=== PATIENT | male | born 1960 | race Caucasian/White ===

== ENCOUNTER → 2017-02-19 | Outpatient (CLI) | payer MEDICARE, BC ==
[~2017-02-19] MED LIST: ADVAIR 100/28 DISKU1 IH; ADVAIR IH; ALAVERT10 M1 PO; ALAVERT10 MG PO; ATARAX10 MG PO; ATIVAN 0.50.5 MG/TAB PO; ATIVAN0.5 MG PO; BENADRYL25 M1 PO; CARDIZEM CD180 MG PO; CELEXA10 MG PO; DEMEROL 50M50 MG/TAB PO; DILAUDID 2MG/2 MG/M1; DILAUDID-51 MG/M1 SQ; DILTIAZEM180 M1 PO; ELAVIL10 MG PO; FISH OIL1000 MG PO; FLECAINIDE ACET50 MG PO; FLECAINIDE PO; FLEXERIL10 MG PO; FLONASE NASAL S16 GM NS; HCTZ PO; IBU-TAB800 MG PO; LEVAQUIN; LORTAB 10/500 51 TAB PO; MEN'S MULTIVITA1 TAB PO; MULTIPLE VITAMI1 TAB PO; NORCO 325 MG-101 TAB PO; NUCYNTA50 MG PO; OMEPRAZOLE20 MG PO; OMNICEF 300MG300 MG PO; PERCOCET 325 MG1 TA2 PO; PRILOSEC 20MG20 MG PO; PROVENTIL0.09 MG/A1 IH; REGLAN 5MG T5 MG/TAB PO; REGLAN 5MG5 MG PO; REMERON15 M1 PO; RT ALBUTER2.5 MG/0.5 IH; SEPTRA 400 MG-1 TAB PO; SINGULAIR10 MG PO; SKELAXIN800 MG PO; SYNTHROID 0.0.025 MG PO; TAMBOCOR50 MG PO; TOPROL XL 50MG50 MG PO; XANAX2 MG PO; ZANTAC 150150 MG PO; ZANTAC 300300 MG PO; ZOFRAN 4MG T4 MG/TAB PO; ZOLOFT
== END ==
LOC: COL.VAS 12:30
DX: M50.221 Other cervical disc displacement at C4-C5 level (principal); M48.02 Spinal stenosis, cervical region; J32.3 Chronic sphenoidal sinusitis; I35.1 Nonrheumatic aortic (valve) insufficiency; R55 Syncope and collapse; Z98.1 Arthrodesis status
CPT/HCPCS: A9585

== ENCOUNTER → 2017-06-24 | Outpatient (CLI) | payer MEDICARE, BC | LOC: COL.RAD 13:15 | DX: M50.221 Other cervical disc displacement at C4-C5 level (principal); M47.812 Spondylosis without myelopathy or radiculopathy, cervical region; Z98.1 Arthrodesis status; Z98.890 Other specified postprocedural states ==

== ENCOUNTER 2018-05-08 15:55 | Emergency (ER) | payer MEDICARE, BC ==
[~2018-05-08 15:55] MED LIST changes: +ATARAX50 MG PO; +CEPHALEXIN500 M1 PO; +CLARITIN 1010 MG/TAB PO; +DILAUDID 4MG TAB4 MG PO; +FLONASEALLERGY NS; +HCTZ 25MG TAB25 MG PO; +KAPSPARGO SPRIN50 MG PO; +PROBIOTIC FORMU1 CAP PO; +SYNTHROID0.1 MG/TAB PO; +XANAX 1MG1 MG PO
[2018-05-08 16:24] VITALS: BP 131/77; PULSE 84
== END 2018-05-08 16:24 | disposition home or self-care (01) ==
LOC: COL.ER 15:55
DX: S01.21XD Laceration without foreign body of nose, subsequent encounter (principal); X58.XXXD Exposure to other specified factors, subsequent encounter

== ENCOUNTER 2018-05-12 18:19 | Emergency (ER) | payer MEDICARE, BC ==
[2018-05-12 18:27] VITALS: BP 131/79; PULSE 75; TEMP 97.7
== END 2018-05-12 18:34 | disposition home or self-care (01) ==
LOC: COL.ER 18:19
DX: S91.311D Laceration without foreign body, right foot, subsequent encounter (principal); X58.XXXD Exposure to other specified factors, subsequent encounter

== ENCOUNTER → 2019-09-22 | Outpatient (CLI) | payer MEDICARE, BC | LOC: COL.RAD 08:48 | DX: G90.1 Familial dysautonomia [Riley-Day] (principal); Z87.820 Personal history of traumatic brain injury | CPT/HCPCS: A9585 ==

== ENCOUNTER 2020-09-27 17:32 | Emergency (ER) | payer MEDICARE, BC ==
[~2020-09-27] VITALS: Ht 177.8 cm; Wt 90.0 kg
[2020-09-27 17:44] VITALS: TEMP 98
[2020-09-27 19:02] LABS: BASO % 0.4 % (0.0-2.0); EOS % 0.4 % (0-4.0); GRAN # 5.8 (1.4-6.5); GRAN % 69.3 % (42.2-75.2); HEMATOCRIT 49.2 % (42.0-52.0); HEMOGLOBIN 17.1 g/dl (13.5-18.0); LYMPH # 1.8 (1.2-3.4); LYMPH % 21.1 % (20.0-51.0); MEAN CELL VOLUME 93 fl (80.0-100.0); MEAN CORPUSCULAR HEMOGLOBIN 32 pg (27.0-31.0); MEAN CORPUSCULAR HGB CONC 35 g/dl (33.0-37.0); MONO # 0.7 (0.1-0.6); MONO % 8.6 % (1.7-9.3); PLATELET COUNT 285 K/mm3 (130-400); RED BLOOD COUNT 5.32 M/mm3 (4.20-5.60); REDCELL DISTRIBUTION WIDTH-CV 12.7 % (11.5-14.5)
[2020-09-27 19:15] LABS: ALANINE AMINOTRANSFERASE 19 U/L (4-49); ALBUMIN 4.5 gm/dL (3.5-5.0); ALKALINE PHOSPHATASE 107 U/L (50-136); ANION GAP 10 mmol/L (7-16); AST,SGOT 23 U/L (15-37); BLOOD UREA NITROGEN 18 mg/dL (9-20); CALCIUM 9.5 mg/dL (8.4-10.2); CARBON DIOXIDE 23 mmol/L (22-30); CHLORIDE 107 mmol/L (98-107); CREATININE, serum 1.15 (0.66-1.25); GLUCOSE 157 mg/dL (74-106); SODIUM 140 mmol/L (137-145); TOTAL PROTEIN 7.7 gm/dL (6.4-8.2)
[2020-09-27 19:22] LABS: C-REACTIVE PROTEIN < 0.5 mg/dL (0.0-0.9)
[2020-09-27 19:25] LABS: TROPONIN-I < 0.012 ng/mL (0.000-0.035)
[2020-09-27 20:23] LABS: COLLECTION METHOD CLEAN CATCH
[2020-09-27 20:31] LABS: MUCOUS Present /lpf; PH 6 (5-8); SQUAMOUS EPITHELIAL None Seen /hpf; URINE APPEARANCE Clear; URINE BACTERIA None Seen /hpf; URINE BILIRUBIN Negative (NEGATIVE); URINE BLOOD Negative (NEGATIVE); URINE COLOR Yellow; URINE GLUCOSE Negative (NEGATIVE); URINE KETONE Trace (NEGATIVE); URINE LEUKOCYTE ESTERASE Negative (NEGATIVE); URINE NITRATE Negative (NEGATIVE); URINE PROTEIN(semi-quant) Negative (NEGATIVE); URINE RBC 0-2 /hpf; URINE UROBILINOGEN Negative (NEGATIVE)
[2020-09-27] MEDS ORDERED: SONATA 10MG10 MG (20:51)
[2020-09-27] MEDS ORDERED: PEPCID 20MG TAB20 MG PO (20:51)
[2020-09-27] MEDS ORDERED: SINGULAIR 110 MG/TAB PO (20:52)
[2020-09-27] MEDS ORDERED: CYMBALTA 60MG60 MG PO (20:54)
[2020-09-27] MEDS ORDERED: ROBAXIN 75750 MG/TAB PO (20:58)
[2020-09-27 21:16] VITALS: BP 131/74; PULSE 82
== END 2020-09-27 21:16 | disposition home or self-care (01) ==
LOC: COL.ER 17:32
PROVIDERS: Family Medicine
DX: R25.1 Tremor, unspecified (principal); R53.83 Other fatigue; G89.29 Other chronic pain; I48.91 Unspecified atrial fibrillation; Z88.6 Allergy status to analgesic agent; Z88.8 Allergy status to other drugs, medicaments and biological substances
CPT/HCPCS: J1885; J7030

== ENCOUNTER 2021-02-16 16:31 | Observation (INO) | payer MEDICARE, BC ==
[~2021-02-16 16:31] MED LIST changes: +CYMBALTA 60MG60 MG PO; +PEPCID 20MG TAB20 MG PO; +ROBAXIN 75750 MG/TAB PO; +SINGULAIR 110 MG/TAB PO; +SONATA 10MG10 MG
[2021-02-16 17:15] LABS: BASO % 0.5 % (0.0-2.0); EOS % 0.2 % (0-4.0); GRAN # 6.1 (1.4-6.5); GRAN % 72.8 % (42.2-75.2); HEMOGLOBIN 17.1 g/dl (13.5-18.0); LYMPH # 1.5 (1.2-3.4); LYMPH % 17.6 % (20.0-51.0); MEAN CELL VOLUME 91 fl (80.0-100.0); MEAN CORPUSCULAR HEMOGLOBIN 32 pg (27.0-31.0); MEAN CORPUSCULAR HGB CONC 36 g/dl (33.0-37.0); MONO # 0.7 (0.1-0.6); MONO % 8.5 % (1.7-9.3); PLATELET COUNT 254 K/mm3 (130-400); RED BLOOD COUNT 5.27 M/mm3 (4.20-5.60); REDCELL DISTRIBUTION WIDTH-CV 12.4 % (11.5-14.5)
[2021-02-16 17:23] LABS: ANION GAP 9 mmol/L (7-16); BLOOD UREA NITROGEN 16 mg/dL (9-20); CALCIUM 9.4 mg/dL (8.4-10.2); CARBON DIOXIDE 22 mmol/L (22-30); CHLORIDE 109 mmol/L (98-107); CREATININE, serum 1.05 (0.66-1.25); GLUCOSE 100 mg/dL (74-106); POTASSIUM 3.9 mmol/L (3.4-5.0); SODIUM 140 mmol/L (137-145)
[2021-02-16 17:41] LABS: TROPONIN-I < 0.012 ng/mL (0.000-0.035)
[2021-02-16 18:06] VITALS: BP 134/77; PULSE 82; TEMP 98.2
[2021-02-16 18:16] LABS: INR 1.1 (0.8-3.0); PROTHROMBIN TIME 11.8 SECONDS (9.7-12.8)
[2021-02-16 18:47] LABS: ALBUMIN 4.3 gm/dL (3.5-5.0); CALCIUM 9.3 mg/dL (8.4-10.2); CREATININE, serum 1.02 (0.66-1.25); POTASSIUM 4.2 mmol/L (3.4-5.0); TOTAL PROTEIN 7.8 gm/dL (6.4-8.2)
[2021-02-16] MEDS ORDERED: NATURAL E400 IU PO (18:59)
[2021-02-16] MEDS ORDERED: MULTIPLE VITAMI1 TA5 PO (19:00)
[2021-02-16] MEDS ORDERED: VITAMIN D 400400 IU PO (19:02)
[2021-02-16] MEDS ORDERED: SYNTHROID0.125 MG/T PO (19:03)
[2021-02-16] MEDS ORDERED: LOPID 600M600 MG/TAB PO (19:04)
[2021-02-16] MEDS ORDERED: CYMBALTA 30MG30 MG PO (19:05)
[2021-02-16] MEDS ORDERED: BENICAR 20MG TA20 MG PO (19:06)
[2021-02-16] MEDS ORDERED: XANAX2 MG PO (19:08)
[2021-02-16] MEDS ORDERED: ROBAXIN 75750 MG/TAB PO (19:09)
[2021-02-16] MEDS ORDERED: SKELAXIN 800MG800 MG PO (19:09)
[2021-02-16] MEDS ORDERED: TORADOL 10MG TA10 MG PO (19:12)
[2021-02-16 19:41] VITALS: BP 118/70; PULSE 89; TEMP 98
--- NOTE | 2021-02-16 19:47 | NUR ---
Aisha BALDERAS with hospitalist notified of consult.
--- NOTE | 2021-02-16 19:56 | NUR ---
Patient admitted to [address] Cohen for laparoscopic cholecystectomy. Assessment completed. Allergies updated. Med rec completed with assist from patients . Patient has implanted Dilaudid pain pump. and patient unsure of dose of Dilaudid received per pump. states patient has difficulties with anesthesia r/t multiple muscle relaxers, pain medications and Dilaudid pump. Patient also has "[place] Lung" and frequently as oxygen desaturation with anesthesia and in general. Uses cpap at night, states he will desat into the 70s while asleep if not using cpap. Patient also states he has "episodes where I get sensations in my arms, then my arms and face turn red, I get a headache and feel like I'm going to pass out." Patient relates the "episodes" happening recently with change out of implanted pain pump Dilaudid. Patients states he is being worked up with neurology and has a recent EEG. Patient c/o chest pain when downstairs in admissions, Dr Cohen was notified, orders placed and carried out. No c/o chest pain or pressure currently. Dr Cohen updated on patient status. No c/o at this time.
--- NOTE | 2021-02-16 20:56 | NUR ---
Pt is in so much pain. he rated his pain 6/10. Day Shift RN told me she called MD about pain meds and i also called aisha with no answer.Will wait for Aisha to call me back.
[2021-02-16 23:55] VITALS: BP 144/73; PULSE 84; TEMP 98.3
[2021-02-17 04:20] VITALS: BP 145/70; PULSE 91; TEMP 97.6
[2021-02-17 07:22] VITALS: BP 112/53; PULSE 71; TEMP 98.1
[2021-02-17 11:13] VITALS: BP 140/63; PULSE 69; TEMP 97.4
--- NOTE | 2021-02-17 12:55 | NUR ---
Bead Machine Operator offered prayer and support with patient while spouse was in room.
--- NOTE | 2021-02-17 13:15 | NUR ---
Patient complaining of pain to back today, states pain pump is not working well; medications given per orders. Antibiotics and fluids infusing per orders to right forarm IV. Spouse at bedside. Complains of migraine fioricet and xanax given per orders. States pain is slightly better prior to transfer. Patient transfering to [facility] in [place]. Report called to RN at [facility]. Patient transfering via EMS.
== END 2021-02-17 13:15 | disposition short-term general hospital (02) ==
LOC: SURG 16:31
PROVIDERS: ADMIT Surgery
DX: K81.0 Acute cholecystitis (principal); T85.695A Other mechanical complication of other nervous system device, implant or graft, initial encounter; R07.9 Chest pain, unspecified; I08.0 Rheumatic disorders of both mitral and aortic valves; I10 Essential (primary) hypertension; I47.1 Supraventricular tachycardia; G89.29 Other chronic pain; M54.9 Dorsalgia, unspecified; M54.2 Cervicalgia; R94.01 Abnormal electroencephalogram [EEG]; K59.00 Constipation, unspecified; G47.33 Obstructive sleep apnea (adult) (pediatric); K21.9 Gastro-esophageal reflux disease without esophagitis; E03.9 Hypothyroidism, unspecified; E78.5 Hyperlipidemia, unspecified; H81.10 Benign paroxysmal vertigo, unspecified ear; F32.9 Major depressive disorder, single episode, unspecified; Z79.890 Hormone replacement therapy; Z79.899 Other long term (current) drug therapy
CPT/HCPCS: 99231-AI; G0378; J1885; J2543; J7030